=== PATIENT | female | born 1955 | race Caucasian/White ===

== ENCOUNTER 2021-01-11 17:55 | Inpatient (IN) | payer MEDICARE ==
[~2021-01-11] VITALS: Ht 162.6 cm; Wt 98.1 kg
[2021-01-11 18:28] LABS: BASOPHILS ABSOLUTE AUTO 0.05 K/mm3 (0.00-0.23); BASOPHILS PERCENT AUTO 0 % (0-2); EOSINOPHILS PERCENT AUTO 1 % (0-6); Hematocrit 42.4 % (33.0-51.0); Hemoglobin 14.2 g/dL (11.5-16.0); IMMATURE GRAN ABSOLUTE AUTO 0.06 K/mm3 (0.00-0.10); IMMATURE GRAN PERCENT AUTO 0 % (0-1); LYMPHOCYTES PERCENT AUTO 14 % (21-46); MONOCYTES ABSOLUTE AUTO 0.67 K/mm3 (0.16-1.47); MONOCYTES PERCENT AUTO 4 % (4-13); Mean Corpuscular HGB 30.8 pg (26.0-34.0); Mean Corpuscular HGB Conc 33.5 g/dL (31.5-36.5); Mean Corpuscular Volume 92 fL (80-100); Mean Platelet Volume 10.6 fL (9.1-12.4); NEUTROPHILS ABSOLUTE AUTO 12.66 K/mm3 (1.96-9.15); NEUTROPHILS PERCENT AUTO 80 % (41-73); Platelet Count 329 K/mm3 (150-400); RDW Coefficient Variation 14.2 % (11.7-14.2); RDW Standard Deviation 48.2 fL (35.1-46.3); Red Blood Cell Count 4.61 M/mm3 (3.80-5.20); White Blood Cell Count 15.84 K/mm3 (4.00-11.30)
[2021-01-11 18:51] LABS: Alanine Aminotransfer (ALT/SGP 21 U/L (12-78); Albumin, Blood 4.1 g/dL (3.4-5.0); Albumin/Globulin Ratio 1.2 (0.8-1.8); Alk Phos 115 U/L (50-136); Anion Gap 8 mmol/L (6-16); Aspartate Aminotrans (AST/SGOT 16 U/L (12-37); Bilirubin, Total 0.2 mg/dL (0.1-1.0); Blood Urea Nitrogen 16 mg/dL (8-24); Bun/Creatinine Ratio 26.5 (12.0-20.0); CO2, Blood 24 mmol/L (21-32); Calcium, Blood 9.1 mg/dL (8.5-10.1); Chloride, Blood 106 mmol/L (98-108); Globulin, Blood 3.4 g/dL (2.2-4.0); Glomerular Filtration Rate >60 (60-); Glucose, Blood 120 mg/dL (70-99); Potassium, Blood 3.8 mmol/L (3.5-5.5); Sodium, Blood 138 mmol/L (136-145); Total Protein, Blood 7.5 g/dL (6.4-8.2); Troponin I <0.015 ng/mL (0.000-0.040)
[2021-01-11] MEDS ORDERED: METO100ER PO (18:56)
[2021-01-11] MEDS ORDERED: WARF5 PO (18:56)
[2021-01-11] MEDS ORDERED: METHI10 PO (18:56)
[2021-01-11] MEDS ORDERED: MAGNESIUM GLU27.5 MG PO (18:57)
[2021-01-11] MEDS ORDERED: Vitamin B-121000 MCG PO (18:57)
[2021-01-11] MEDS ORDERED: VITAMIN D5000 UNIT PO (18:57)
[2021-01-11] MEDS ORDERED: Masophen500 MG PO (18:58)
[2021-01-11] MEDS ORDERED: Toprol Xl50 MG PO (21:16)
[2021-01-11] MEDS ORDERED: MELA3 PO (23:57)
--- NOTE | 2021-01-12 01:11 | NUR ---
PT ADMITTED FROM ER AT APPROX 2340 FOR CHOLECYSTITIS. A&O X4. PT REPORTS DRIVING TO [place]LI[place] THIS MORNING TO VISIT HER SISTER AND BECAME SICK AFTER EATING LUNCH. DENIES N/V AT THIS TIME. DENIES PAIN AFTER BEING GIVEN TORADOL IN THE ER. HR JEREMIAH IN THE 50'S. PT REPORTS THIS HAS BEEN NORMAL FOR HER D/T METOPROLOL. ALL OTHER VS WNL. IVF STARTED PER ORDERS. PT WILL BE NPO FOR POSSIBLE SURGERY TODAY.
[2021-01-12 05:02] LABS: BASOPHILS ABSOLUTE AUTO 0.05 K/mm3 (0.00-0.23); BASOPHILS PERCENT AUTO 1 % (0-2); EOSINOPHILS ABSOLUTE AUTO 0.24 K/mm3 (0.00-0.68); EOSINOPHILS PERCENT AUTO 3 % (0-6); IMMATURE GRAN ABSOLUTE AUTO 0.03 K/mm3 (0.00-0.10); IMMATURE GRAN PERCENT AUTO 0 % (0-1); LYMPHOCYTES ABSOLUTE AUTO 2.01 K/mm3 (0.84-5.20); LYMPHOCYTES PERCENT AUTO 24 % (21-46); MONOCYTES ABSOLUTE AUTO 0.58 K/mm3 (0.16-1.47); MONOCYTES PERCENT AUTO 7 % (4-13); Mean Corpuscular HGB 30.3 pg (26.0-34.0); Mean Corpuscular HGB Conc 32.5 g/dL (31.5-36.5); Mean Corpuscular Volume 93 fL (80-100); Mean Platelet Volume 10.6 fL (9.1-12.4); NEUTROPHILS ABSOLUTE AUTO 5.34 K/mm3 (1.96-9.15); NEUTROPHILS PERCENT AUTO 65 % (41-73); Platelet Count 273 K/mm3 (150-400); RDW Coefficient Variation 14.4 % (11.7-14.2); RDW Standard Deviation 49.4 fL (35.1-46.3); Red Blood Cell Count 4.29 M/mm3 (3.80-5.20); White Blood Cell Count 8.25 K/mm3 (4.00-11.30)
[2021-01-12 05:13] LABS: International Normalized Ratio 2.16; Prothrombin Time Results 22.1 Sec (9.7-11.5)
[2021-01-12 05:20] LABS: Alanine Aminotransfer (ALT/SGP 24 U/L (12-78); Albumin, Blood 3.3 g/dL (3.4-5.0); Albumin/Globulin Ratio 1.1 (0.8-1.8); Alk Phos 99 U/L (50-136); Anion Gap 4 mmol/L (6-16); Aspartate Aminotrans (AST/SGOT 23 U/L (12-37); Bilirubin, Total 0.3 mg/dL (0.1-1.0); Blood Urea Nitrogen 14 mg/dL (8-24); Bun/Creatinine Ratio 20.6 (12.0-20.0); CO2, Blood 27 mmol/L (21-32); Calcium, Blood 8.5 mg/dL (8.5-10.1); Chloride, Blood 110 mmol/L (98-108); Creatinine, Blood 0.68 mg/dL (0.40-1.00); Glomerular Filtration Rate >60 (60-); Glucose, Blood 92 mg/dL (70-99); Sodium, Blood 141 mmol/L (136-145); Total Protein, Blood 6.3 g/dL (6.4-8.2)
[2021-01-12 06:24] LABS: Influenza A, PCR NEGATIVE (NEGATIVE); Influenza B, PCR NEGATIVE (NEGATIVE); Resp Syncytial Virus, PCR NEGATIVE (NEGATIVE); SARS-Cov-2 (COVID-19) PCR, MMC NEGATIVE (NEGATIVE)
--- NOTE | 2021-01-12 12:07 | NUR ---
SHE DISCHARGED AT 1125 WITH HER BELONGINGS AND INSTRUCTIONS. SHE HAD NO PAIN OR NAUSEA. SHE WAS NPO EXCEPT FOR 2 PILLS WITH WATER. SHE IS A LITTLE WORRIED ABOUT PAIN WHEN SHE RESUMES PO INTAKE. SHE WILL RESUME HER COUMADIN TONIGHT AND FOLLOW UP WITH HER PCP NEMESIO. SHE IS INDEPENDENTLY AMBULATORY AND WILL GO TO HER SISTER'S HOUSE FIRST.
== END 2021-01-12 11:29 | disposition home or self-care (01) | DRG 446 ==
LOC: ER 17:55 → SURS 23:30
PROVIDERS: Physician Assistant; ADMIT Surgery
DX: K80.00 Calculus of gallbladder with acute cholecystitis without obstruction (principal); Z20.822 Contact with and (suspected) exposure to COVID-19; I10 Essential (primary) hypertension; K57.30 Diverticulosis of large intestine without perforation or abscess without bleeding; Z87.891 Personal history of nicotine dependence
CPT/HCPCS: 0241U; 36415; 71045; 74177; 76705; 80053; 83690; 84484; 85025; 85610; 93005; 93010; 96365-59; 96375; 99285-25; A9270; J0295; J1885; J2270; J2405; J2543; J3430; J7120; Q9967